=== PATIENT | male | born 1940 | race Caucasian/White ===

== ENCOUNTER 2017-08-08 18:28 | Observation (INO) | payer OTHER ==
--- NOTE | 2017-08-08 18:43 | EDPHY ---
H & P Stated Complaint: Productive cough, headache, sinus pressure, fatigue for 36 hours. Time Seen by Provider: 08/08/17 18:42 HPI/ROS: CHIEF COMPLAINT: Productive cough, headache, sinus pressure, dyspnea, mild chest pain HISTORY OF PRESENT ILLNESS: The patient presents the ED with a several day history of productive cough, myalgias, mild headache, sinus pressure, mild anterior chest pain and dyspnea. The patient does report mild flu-like symptoms. He denies any vomiting or diarrhea. The patient's past medical history is significant for atrial fibrillation. The patient denies any recent travel outside the [place] or antibiotic use. The patient states that his symptoms are mild in nature however have been progressively worsening over the past 24 hr. The patient denies any acute numbness, weakness, history of trauma or additional complaints. REVIEW OF SYSTEMS: A comprehensive 10 point review of systems is otherwise negative aside from elements mentioned in the history of present illness. Source: Patient Exam Limitations: No limitations - Personal History Current Tetanus Diphtheria and Acellular Pertussis (TDAP): Yes - Medical/Surgical History Hx Asthma: No Hx Chronic Respiratory Disease: No Hx Diabetes: No Hx Cardiac Disease: Yes Hx Renal Disease: No Hx Cirrhosis: No Hx Alcoholism: No Hx HIV/AIDS: No Hx Splenectomy or Spleen Trauma: No Other PMH: A-fib. Dissected superior meseteric artery - Social History Smoking Status: Never smoked - Physical Exam Exam: General Appearance: Alert, no distress Eyes: Pupils equal and round no pallor or injection ENT, Mouth: Mucous membranes moist Respiratory: Rales noted bilaterally Cardiovascular: Regular rate and rhythm Gastrointestinal: Abdomen is soft and nontender, no masses, bowel sounds normal Neurological: A&O, normal motor function, normal sensory exam, normal cranial nerves Skin: Warm and dry, no rashes Musculoskeletal: Neck is supple nontender Extremities: symmetrical, full range of motion Constitutional: Initial Vital Signs Temperature (C) 36.9 C 08/08/17 18:29 Heart Rate 69 08/08/17 18:29 Respiratory Rate 16 08/08/17 18:29 Blood Pressure 127/74 H 08/08/17 18:29 O2 Sat (%) 93 08/08/17 18:29 O2 Delivery Mode Room Air Allergies/Adverse Reactions: Penicillins Allergy (Unknown, Verified 12/20/11 11:44) Home Medications: Medication Instructions Recorded Albuterol [Ventolin Hfa Inhaler] 2 puffs IH QID PRN #1 mdi 08/08/17 Bystolic 08/08/17 Ondansetron Odt [Zofran Odt] 4 mg PO Q4PRN PRN #20 tab 08/08/17 Oseltamivir Phosphate [Tamiflu] 75 mg PO BID #10 cap 08/08/17 Rythmol Sr 08/08/17 Medical Decision Making - Diagnostics EKG Interpretation: EKG: Complete interpretation has been separately recorded in the [facility] archive. Summary impression: Sinus rhythm, rate 66, right bundle branch block present no acute changes from prior EKG Imaging Results: Imaging Impressions Chest X-Ray 08/08/17 18:53 Impression: 1. Borderline cardiomegaly. No active cardiopulmonary disease seen. ED Course/Re-evaluation: The patient presents to the ED with fever, cough, congestion and sinus pressure. The patient has had some mild dyspnea. He was noted to be hemodynamically stable upon arrival. The patient was taken for a chest x-ray given his respiratory complaints some mild hypoxemia which demonstrates no evidence of an obvious pneumonia. The patient's EKG demonstrates chronic ST segment changes noted in the lateral leads. The patient does have an incomplete right bundle branch block. The patient did receive an albuterol updraft in the emergency department. Additional testing included an unremarkable CBC and serum chemistries. The patient's influenza PCR is positive. The patient received Tamiflu in the emergency department. The patient was noted to be mildly hypoxemic with an oxygen saturation of 89% on room air. The patient was observed to have an ambulatory O2 sat of 80%. The patient will require admission to the hospital in the setting of his acute hypoxemia. Consultation is made with Dr. Sanchez from the hospitalist service who will admit the patient. Differential Diagnosis: Differential diagnosis considered includes congestive heart failure, pneumonia, influenza, asthma, arrhythmia, myocardial infarction, dehydration - Data Points Laboratory Results: Laboratory Results 08/08/17 18:00 08/08/17 18:00 08/08/17 08/08/17 08/08/17 19:00 18:00 18:00 WBC 4.13 10^3/uL 10^3/uL (3.80-9.50) RBC 4.37 10^6/uL L 10^6/uL (4.40-6.38) Hgb 15.2 g/dL g/dL (13.7-17.5) Hct 43.0 % % (40.0-51.0) MCV 98.4 fL fL (81.5-99.8) MCH 34.8 pg H pg (27.9-34.1) MCHC 35.3 g/dL g/dL (32.4-36.7) RDW 12.3 % % (11.5-15.2) Plt Count 180 10^3/uL 10^3/uL (150-400) MPV 9.7 fL fL (8.7-11.7) Neut % (Auto) 73.7 % % (39.3-74.2) Lymph % (Auto) 13.3 % L % (15.0-45.0) Brantley % (Auto) 10.9 % % (4.5-13.0) Eos % (Auto) 1.7 % % (0.6-7.6) Baso % (Auto) 0.2 % L % (0.3-1.7) Nucleat RBC Rel Count 0.0 % % (0.0-0.2) Absolute Neuts (auto) 3.04 10^3/uL 10^3/uL (1.70-6.50) Absolute Lymphs (auto) 0.55 10^3/uL L 10^3/uL (1.00-3.00) Absolute Monos (auto) 0.45 10^3/uL 10^3/uL (0.30-0.80) Absolute Eos (auto) 0.07 10^3/uL 10^3/uL (0.03-0.40) Absolute Basos (auto) 0.01 10^3/uL L 10^3/uL (0.02-0.10) Absolute Nucleated RBC 0.00 10^3/uL 10^3/uL (0-0.01) Immature Gran % 0.2 % % (0.0-1.1) Immature Gran # 0.01 10^3/uL 10^3/uL (0.00-0.10) Sodium 131 mEq/L L mEq/L (134-144) Potassium 4.3 mEq/L mEq/L (3.5-5.2) Chloride 97 mEq/L mEq/L (97-110) Carbon Dioxide 27 mEq/l mEq/l (22-31) Anion Gap 7 mEq/L L mEq/L (8-16) BUN 19 mg/dL mg/dL (7-23) Creatinine 0.9 mg/dL mg/dL (0.7-1.3) Estimated GFR > 60 Glucose 98 mg/dL mg/dL (70-100) Calcium 8.9 mg/dL mg/dL (8.5-10.4) Troponin I < 0.012 ng/mL ng/mL (0.000-0.034) Nasal Influenza A PCR FLU A DETECTED H (NEGATIVE) Nasal Influenza B PCR NEGATIVE FOR FLU B (NEGATIVE) Medications Given: Discontinued Medications Albuterol (Proventil Neb) 3 ml IH EDNOW ONE Stop: 08/08/17 19:55 Last Admin: 08/08/17 20:00 Dose: 3 ml Oseltamivir Phosphate (Tamiflu) 75 mg PO EDNOW ONE Stop: 08/08/17 19:52 Last Admin: 08/08/17 19:57 Dose: 75 mg Departure - Departure Disposition: [facility] Acute Clinical Impression: Influenza, Hypoxemia Condition: Fair Prescriptions: Albuterol [Ventolin Hfa Inhaler] 2 puffs IH QID PRN #1 mdi PRN Reason: for shortness of breath Ondansetron Odt [Zofran Odt] 4 mg PO Q4PRN PRN #20 tab PRN Reason: For Nausea Oseltamivir Phosphate [Tamiflu] 75 mg PO BID #10 cap
--- NOTE | 2017-08-08 19:18 | CPEKG ---
Heart Rate: 66 RR Interval: 909 P-R Interval: 220 QRSD Interval: 148 QT Interval: 416 QTC Interval: 436 P [place]: 72 QRS [place]: -41 T Wave [place]: 101 EKG Severity - ABNORMAL ECG - EKG Impression: SINUS ARRHYTHMIA, RATE 50-77 EKG Impression: FIRST DEGREE AV BLOCK EKG Impression: RBBB AND LAFB Electronically Signed By: Ihsan Garza 08-Aug-2017 20:08:15
[2017-08-08 19:19] LABS: % IMMATURE GRANULYOCYTES 0.2 % (0.0-1.1); ABSOLUTE IMMATURE GRANULOCYTES 0.01 10^3/uL (0.00-0.10); ADD DIFF? NO; ADD MORPH? NO; ADD SCAN? NO; ATYPICAL LYMPHOCYTE FLAG 0 (0-99); FRAGMENT RBC FLAG 0 (0-99); HEMOGLOBIN 15.2 g/dL (13.7-17.5); LEFT SHIFT FLG 0 (0-99); LIPEMIA HEMOLYSIS FLAG 90 (0-99); MEAN CELL HEMOGLOBIN 34.8 pg (27.9-34.1); MEAN CELL HEMOGLOBIN CONCENTR. 35.3 g/dL (32.4-36.7); MEAN CELL VOLUME 98.4 fL (81.5-99.8); MEAN PLATELET VOLUME 9.7 fL (8.7-11.7); PLATELET CLUMPS FLAG 10 (0-99); PLATELET COUNT 180 10^3/uL (150-400); RED BLOOD CELL COUNT 4.37 10^6/uL (4.40-6.38); RED CELL DISTRIBUTION WIDTH 12.3 % (11.5-15.2)
[2017-08-08 19:32] LABS: ANION GAP 7 mEq/L (8-16); CALCIUM 8.9 mg/dL (8.5-10.4); CARBON DIOXIDE 27 mEq/l (22-31); CHLORIDE 97 mEq/L (97-110); CREATININE 0.9 mg/dL (0.7-1.3); GLOMERULAR FILTRATION RATE > 60; GLUCOSE 98 mg/dL (70-100); POTASSIUM 4.3 mEq/L (3.5-5.2); SODIUM 131 mEq/L (134-144)
[2017-08-08 19:43] LABS: TROPONIN I < 0.012 ng/mL (0.000-0.034)
[2017-08-08 19:47] LABS: PRINT OR CALL CRITICALS TECH CALL
[2017-08-08] MEDS ORDERED: OSELTAMIVIR PHOSPHATE 75 MG CAP PO ONE (19:51)
[2017-08-08] MEDS ORDERED: ALBUTEROL 3 ML DEYVIAL IH ONE (19:54)
[2017-08-08] MEDS ORDERED: ONDANSETRON DISINTEGRATING 4 MG TAB PO PRN (21:54)
[2017-08-08] MEDS ORDERED: IBUPROFEN 200 MG TAB PO PRN (21:54)
[2017-08-08] MEDS ORDERED: ONDANSETRON 4 MG/2 ML VIAL IVP PRN (21:54)
--- NOTE | 2017-08-08 22:14 | GHP ---
[f rep st] HISTORY AND PHYSICAL DATE OF ADMISSION: 08/08/2017 CHIEF COMPLAINT: Chills, fatigue. HISTORY OF PRESENT ILLNESS: This is a 76-year-old male, who has had 36 hours of fatigue, body aches, chills, productive cough, headache. He does have some shortness of breath which he describes as not being able to take a deep enough breath. No chest pain. REVIEW OF SYSTEMS: A 10-point review of systems was obtained and negative. PAST MEDICAL HISTORY: 1. Atrial fibrillation. 2. Dissected superior mesenteric artery. MEDICATIONS: Reviewed. SOCIAL HISTORY: No smoking. Occasional alcohol. Lives with his . FAMILY HISTORY: Reviewed and noncontributory. PHYSICAL EXAM: VITAL SIGNS: Afebrile, blood pressure is 110/64, heart rate 72, oxygen saturation 96 % on 2 L. It does drop to 80% with ambulation and there has been reports of 87% at rest. GENERAL: Patient no apparent distress. HEENT: Nonicteric sclerae. Extraocular movements intact. Moist muco us membranes. NECK: Supple. No thyromegaly. LUNGS: Good effort. Slight crackles in the left bas e. Otherwise clear. CARDIOVASCULAR: Regular rate and rhythm. No murmurs, gallops. ABDOMEN: Posi tive bowel sounds. Soft, nontender, nondistended. No hepatosplenomegaly. EXTREMITIES: No clubbing , cyanosis, or edema. SKIN: Without rash, dry, intact. NEUROLOGIC: Alert and oriented x3. Moving all 4 extremities equally. PSYCH: Normal mood and affect. LABS: White count 4, otherwise normal. Chemistries normal. Troponin is negative. Chest x-ray pers onally reviewed, shows no acute pulmonary changes. Flu swab was positive for flu A. ASSESSMENT: This is a 76-year-old male presenting with acute influenza. 1. Acute influenza. We will continue Tamiflu as started in the ER. 2. Mild hypoxia. We will see if nebulizer treatments can open this up. If not, the patient probabl y can be discharged with some home oxygen. 3. Atrial fibrillation. Patient's heart rate is regular currently. 4. 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 /[id number]/MODL
[2017-08-08] MEDS: PROPAFENONE HCL SR 225 MG CAP PO SCH (22:32)
[2017-08-08] MEDS: ACETAMINOPHEN 325 MG TAB PO PRN (22:32)
[2017-08-08] MEDS: 1/2 NS 1,000 ML IV SCH (22:36)
[2017-08-09] MEDS ORDERED: BENZONATATE 100 MG CAP PO PRN (01:17)
[2017-08-09] MEDS: GUAIFENESIN/DM 10 ML UDCUP PO PRN (01:33)
[2017-08-09] MEDS: ALBUTEROL 3 ML DEYVIAL IH SCH ×4 (05:29→20:46)
[2017-08-09] MEDS: OSELTAMIVIR PHOSPHATE 75 MG CAP PO SCH ×2 (08:54→17:43)
[2017-08-09] MEDS: ASCORBIC ACID 500 MG TAB PO SCH ×2 (08:54→20:17)
[2017-08-09] MEDS: ASPIRIN EC 81 MG TAB PO SCH (08:55)
[2017-08-09] MEDS: PROPAFENONE HCL SR 225 MG CAP PO SCH ×2 (08:55→20:17)
[2017-08-09] MEDS: NEBIVOLOL HCL 5 MG TAB PO SCH (08:55)
[2017-08-09] MEDS: 1/2 NS 1,000 ML IV SCH (11:56)
--- NOTE | 2017-08-09 12:10 | ASMTCMCOM ---
CM Note CM Note Notes: Pt admitted w/flu and mild hypoxia. He lives at home w/. DC needs, if any, not clear at this time. CM w/f. Date Signed: 08/09/2017 12:10 PM Electronically Signed By:Nubia Jhonson RN
--- NOTE | 2017-08-09 15:28 | HOSPPROG ---
Hospitalist Progress Note Assessment/Plan: 76 yo M w influenza and acute hypoxemic resp failure influenza: tamiflu ahrf: attributable to above continue prn nebs proph: ambulatory dispo: change to inpt Subjective: cxr w no infiltrate (interp by me). feels poorly Objective: Vital Signs Temp Pulse Resp BP Pulse Ox 37.5 C 67 18 118/70 94 08/09/17 15:03 08/09/17 15:03 08/09/17 15:03 08/09/17 15:03 08/09/17 15:03 08/08/17 08/09/17 08/10/17 05:59 05:59 05:59 Intake Total 250 Balance 250 - Physical Exam Constitutional: no apparent distress, appears nourished Eyes: PERRL, anicteric sclera Ears, Nose, Mouth, Throat: moist mucous membranes, hearing normal Cardiovascular: regular rate and rhythym, no murmur, rub, or gallop Respiratory: no respiratory distress, no rales or rhonchi Gastrointestinal: normoactive bowel sounds, soft, non-tender abdomen Genitourinary: No pretty in urethra Skin: warm Musculoskeletal: full muscle strength, no muscle tenderness Neurologic: AAOx3 Psychiatric: interacting appropriately ICD10 Worksheet Patient Problems: Problems Problem Status Onset Hypoxemia Acute Influenza Acute
[2017-08-09] MEDS: CHOLECALCIFEROL VIT D3 1,000 UNITS TAB PO SCH (15:59)
[2017-08-09] MEDS: ACETAMINOPHEN 325 MG TAB PO PRN (16:02)
[2017-08-10] MEDS: GUAIFENESIN/DM 10 ML UDCUP PO PRN (04:07)
[2017-08-10] MEDS: ALBUTEROL 3 ML DEYVIAL IH SCH ×2 (04:46→10:34)
[2017-08-10] MEDS: ASCORBIC ACID 500 MG TAB PO SCH (10:03)
[2017-08-10] MEDS: CHOLECALCIFEROL VIT D3 1,000 UNITS TAB PO SCH (10:04)
[2017-08-10] MEDS: ASPIRIN EC 81 MG TAB PO SCH (10:04)
[2017-08-10] MEDS: OSELTAMIVIR PHOSPHATE 75 MG CAP PO SCH (10:04)
[2017-08-10] MEDS: PROPAFENONE HCL SR 225 MG CAP PO SCH (10:11)
[2017-08-10] MEDS: NEBIVOLOL HCL 5 MG TAB PO SCH (10:11)
--- NOTE | 2017-08-10 10:13 | HOSPPROG ---
Hospitalist Progress Note Assessment/Plan: 76 yo M w influenza and acute hypoxemic resp failure influenza: tamiflu ahrf: attributable to above continue prn nebs proph: ambulatory dispo: home today Subjective: symptomatically improved Objective: Vital Signs Temp Pulse Resp BP Pulse Ox 36.9 C 68 18 106/62 93 08/10/17 07:18 08/10/17 10:11 08/10/17 07:18 08/10/17 10:11 08/10/17 07:53 08/09/17 08/10/17 08/11/17 05:59 05:59 05:59 Intake Total 250 1154 Balance 250 1154 - Physical Exam Constitutional: no apparent distress, appears nourished Eyes: PERRL, anicteric sclera Ears, Nose, Mouth, Throat: moist mucous membranes, hearing normal Cardiovascular: regular rate and rhythym, no murmur, rub, or gallop Respiratory: no respiratory distress, no rales or rhonchi Gastrointestinal: normoactive bowel sounds, soft, non-tender abdomen Genitourinary: no bladder fullness, No pretty in urethra Skin: warm, normal color Musculoskeletal: full muscle strength, no muscle tenderness Neurologic: AAOx3 ICD10 Worksheet Patient Problems: Problems Problem Status Onset Hypoxemia Acute Influenza Acute
[2017-08-10 11:42] VITALS: BP 98/62; PULSE 65; RESP 16; TEMP 98.1; O2SAT 91
--- NOTE | 2017-08-10 12:44 | ASMTCMCOM ---
CM Note CM Note Notes: Spoke w/RN, anticipate pt will dc home w/support of when medically stable. CM available for any changes. Date Signed: 08/10/2017 12:44 PM Electronically Signed By:Tabitha Monroy RN
--- NOTE | 2017-08-10 18:11 | ASDISCHSUM ---
Discharge Information Plan Status:Home with No Needs Medically Cleared to Leave: Discharge Date:08/10/2017 02:51 PM CM D/C Disposition:Home, Routine, Self-Care ADT D/C Disposition:Home, Routine, Self-Care Projected Discharge Date:08/10/2017 02:51 PM Transportation at D/C: Discharge Delay Reason: Follow-Up Date:08/10/2017 02:51 PM Discharge Slot: Final Diagnosis: Placement Information Patient Contact Information Contact Name:LIYAH Relationship: Address:[address] [place] [address] City:[place] Alternate Phone: [facility] Code:[place] [id number] Email: Financial Information Financial Class: Primary Plan Desc:MEDICARE OUTPATIENT Primary Plan Number:[id number] Secondary Plan Desc: Secondary Plan Number: Assessment Information [facility] CM Progress Note CM Note CM Note Notes: Pt admitted w/flu and mild hypoxia. He lives at home w/. DC needs, if any, not clear at this time. CM w/f. Date Signed: 08/09/2017 12:10 PM Electronically Signed By:Nubia Johnson RN [facility] CM Progress Note CM Note CM Note Notes: Spoke w/RN, anticipate pt will dc home w/support of when medically stable. CM available for any changes. Date Signed: 08/10/2017 12:44 PM Electronically Signed By:Tabitha Monroy RN Intervention Information Intervention Type:*LUNDBERG-Signed Date of Service:08/09/2017 09:59 AM Patient Type:Observation Staff Member:Nicol Hair Hours: Discipline: Severity: Comment:
--- NOTE | 2017-08-11 04:30 | GDS ---
[f rep st] DISCHARGE SUMMARY DISCHARGE DIAGNOSES: 1. Acute hypoxemic respiratory failure. 2. Influenza A. Please see admission history and physical by Dr. Link Sanchez. Patient presented with increased work of breathing and a chest x-ray showing airway disease and mild hypoxia status positive for influenza A. Started on Tamiflu. Hypoxia on the first day. Discharged second hospital day. Per his request, I increased his dose of vitamin D under the auspices that this would improve his infection. He is discharged home with a course of Tamiflu. /[id number]/MODL
== END 2017-08-10 14:51 | disposition home or self-care (01) ==
LOC: F3E 22:07
PROVIDERS: ADMIT Internal Medicine; ATTEND Internal Medicine
DX: J96.01 Acute respiratory failure with hypoxia (principal); J10.1 Influenza due to other identified influenza virus with other respiratory manifestations; I48.91 Unspecified atrial fibrillation; I44.0 Atrioventricular block, first degree; Z86.79 Personal history of other diseases of the circulatory system; Z88.0 Allergy status to penicillin
CPT/HCPCS: 71020; 93005; 99285; G0378

== ENCOUNTER 2017-10-10 03:02 | Emergency (ER) | payer OTHER ==
[2017-10-10 03:08] VITALS: RESP 18
[2017-10-10 03:58] LABS: PLATELET COUNT 200 10^3/uL (150-400)
--- NOTE | 2017-10-10 04:15 | EDPHY ---
H & P Stated Complaint: lower abd pain, pain with urination, FLYNN Time Seen by Provider: 10/10/17 03:46 HPI/ROS: HPI The patient presents with lower abdominal pain which is achy in nature and began yesterday, it has gotten progressively worse and is associated with dysuria and urgency. He has not had any fevers though had a slight chill. With this he had a mild headache which he complained about to his . He has not had a back pain, flank pain, nausea, vomiting. He has history of frequent UTIs previously, though has been asymptomatic since having green light laser procedure performed by Dr. Gerard of Urology. On review of records, he has previously received ciprofloxacin for his urinary tract infections. REVIEW OF SYSTEMS Constitutional: No fever, positive for chills. Eyes: No discharge. ENT: No sore throat. Cardiovascular: No chest pain, no palpitations. Respiratory: No cough, no shortness of breath. Gastrointestinal: See HPI Genitourinary: No hematuria. Musculoskeletal: No back pain. Skin: No rashes. Neurological: No headache. PMHx: Atrial fibrillation, history BPH status post green light laser Soc Hx: Lives at home with his PHYSICAL General Appearance: Alert, no distress Eyes: Pupils equal and round no pallor or injection ENT, Mouth: Mucous membranes moist Respiratory: There are no retractions, lungs are clear to auscultation Cardiovascular: Regular rate and rhythm Gastrointestinal: Abdomen is soft and non-tender, no masses, bowel sounds normal Neurological: A&O, moves all extremities Skin: Warm and dry, no rashes Musculoskeletal: Neck is supple non tender Extremities: symmetrical, full range of motion Psychiatric: Patient is oriented X 3, there is no agitation Source: Patient Exam Limitations: No limitations - Personal History Current Tetanus/Diphtheria Vaccine: Yes Tetanus Vaccine Date: <10 years - Medical/Surgical History Hx Asthma: No Hx Chronic Respiratory Disease: No Hx Diabetes: No Hx Cardiac Disease: Yes Hx Renal Disease: No Hx Cirrhosis: No Hx Alcoholism: No Hx HIV/AIDS: No Hx Splenectomy or Spleen Trauma: No Other PMH: A-fib. Dissected superior meseteric artery, meningioma, volvulus surg , heart ablation, knee scopes - Social History Smoking Status: Never smoked Constitutional: Initial Vital Signs Temperature (C) 37.0 C 10/10/17 03:04 Heart Rate 72 10/10/17 03:04 Respiratory Rate 18 10/10/17 03:04 Blood Pressure 118/72 10/10/17 03:04 O2 Sat (%) 92 10/10/17 03:04 O2 Delivery Mode Room Air Allergies/Adverse Reactions: Penicillins Allergy (Unknown, Verified 10/10/17 03:09) tetanus toxoid, adsorbed Allergy (Verified 10/10/17 03:09) Tetracyclines Allergy (Verified 10/10/17 03:09) Home Medications: Medication Instructions Recorded Albuterol [Ventolin Hfa Inhaler] 2 puffs IH QID PRN #1 mdi 08/08/17 Ascorbic Acid [Vitamin C 250 mg 250 mg PO BID 08/08/17 (*)] Aspirin EC [Aspirin EC 81 mg (*)] 81 mg PO DAILY 08/08/17 Cholecalciferol Vit D3 [Vitamin D3] 800 units PO BID 08/08/17 Herbals/Supplements -Info Only 1 ea PO DAILY 08/08/17 Loratadine 10 mg PO DAILY PRN 08/08/17 Nebivolol HCl [Bystolic] 2.5 mg PO DAILY 08/08/17 Ondansetron Odt [Zofran Odt] 4 mg PO Q4PRN PRN #20 tab 08/08/17 Propafenone HCl [Rythmol Sr] 225 mg PO BID 08/08/17 Albuterol [Proventil Inhaler HFA 1 - 2 puffs IH Q4H #1 mdi 08/10/17 (*)] Benzonatate [Tessalon Pearles] 100 mg PO TID PRN #30 cap 08/10/17 Ciprofloxacin [Cipro] 500 mg PO BID #14 tab 10/10/17 Medical Decision Making Differential Diagnosis: 77-year-old male presents with suprapubic abdominal pain, subjective fevers, irritative voiding symptoms. He has history of urinary tract infections in the setting of BPH, though is status post green light laser procedure without any UTIs since. On exam, he is very well-appearing, his vital signs are normal. He does not have any abdominal tenderness on exam. Differential diagnosis includes cystitis, prostatitis, less likely pyelonephritis. In the emergency department, basic labs were checked and were unremarkable except for urinalysis which showed signs of infection. The patient was given a dose of ceftriaxone here. I will prescribe him a course of ciprofloxacin given he has taken in this this in the past several times for urinary tract infections. He is in agreement with this plan. I feel he can be safely discharged. I have given him follow-up information for his urologist and I would like him to be seen in the next few days. - Data Points Laboratory Results: Laboratory Results 10/10/17 03:45 10/10/17 03:45 Medications Given: Discontinued Medications Ceftriaxone Sodium/Dextrose (Rocephin 1 Gm (Premix)) 50 mls @ 100 mls/hr IV EDNOW ONE PRN Reason: Protocol Stop: 10/10/17 04:42 Last Admin: 10/10/17 04:21 Dose: 50 mls Departure - Departure Disposition: Home, Routine, Self-Care Clinical Impression: Urinary tract infection Condition: Good Instructions: Ciprofloxacin (By mouth), Urinary Tract Infection in Men (ED) Additional Instructions: I would like for you to follow up with Dr. Gerard in the next few days. You should return to the emergency department if you develop any back pain, fever, vomiting, or are worse in any way. Referrals: Sarah Jean MD [Primary Care Provider] - As per Instructions Thang Gerard MD [Medical Doctor] - As per Instructions Prescriptions: Ciprofloxacin [Cipro] 500 mg PO BID #14 tab
[2017-10-10] MEDS ORDERED: NS 50 ML BAG IV ONE (04:17)
[2017-10-10 05:09] VITALS: BP 116/68; PULSE 74; TEMP 98.2; O2SAT 94
== END 2017-10-10 05:09 | disposition home or self-care (01) ==
DX: N39.0 Urinary tract infection, site not specified (principal); B96.20 Unspecified Escherichia coli [E. coli] as the cause of diseases classified elsewhere; Z79.82 Long term (current) use of aspirin
CPT/HCPCS: 96365; 99284; J0696

== ENCOUNTER → 2017-12-07 | Outpatient (CLI) | payer OTHER | LOC: FIMAGING 09:47 | PROVIDERS: ATTEND Internal Medicine | DX: J98.4 Other disorders of lung (principal) ==

== ENCOUNTER → 2018-03-05 | Outpatient (CLI) | payer OTHER | LOC: BMCIMAGING 12:37 | PROVIDERS: ATTEND Internal Medicine | DX: I65.23 Occlusion and stenosis of bilateral carotid arteries (principal) ==